=== PATIENT | female | born 1955 | race Caucasian/White ===

== ENCOUNTER 2018-11-06 04:41 | Inpatient (IN) ==
--- NOTE | 2018-10-09 09:25 | PAT Medication Instructions ---
Medication Instructions Date of Service October 09, 2018 Home Medications Medication Instructions Recorded tramadol 50 mg PO .q4-6h PRN #30 tab 04/11/18 Calcium 600 + D(3) 1 tab PO QAM allopurinol 100 mg PO QAM cholecalciferol (vitamin D3) [Vitamin D3] 1,000 unit PO QAM clotrimazole-betamethasone 1 applic TOPICAL BID NEEDED levothyroxine [Synthroid] 150 mcg PO QAM olmesartan-hydrochlorothiazide [Benicar HCT] 1 tab PO QAM solifenacin [Vesicare] 10 mg PO QAM tramadol 50 mg PO .q4-6h NEEDED ASK your surgeon for instructions naproxen sodium [Aleve] 440 mg PO BID NEEDED STOP taking 24 hours before surgery clotrimazole-betamethasone 1 applic TOPICAL BID NEEDED DO NOT take the morning of surgery Calcium 600 + D(3) 1 tab PO QAM cholecalciferol (vitamin D3) [Vitamin D3] 1,000 unit PO QAM olmesartan-hydrochlorothiazide [Benicar HCT] 1 tab PO QAM solifenacin [Vesicare] 10 mg PO QAM Take morning of surgery With a small sip of water, OTHERWISE NOTHING TO EAT OR DRINK AFTER MIDNIGHT: allopurinol 100 mg PO QAM levothyroxine [Synthroid] 150 mcg PO QAM tramadol 50 mg PO .q4-6h NEEDED (if needed; stop 4 hours before surgery) Take evening before surgery tramadol 50 mg PO .q4-6h NEEDED (if needed) Other Notes If you have any questions please call us at [phone] or [phone] or [phone] or [phone]
--- NOTE | 2018-10-09 09:32 | Anesthesiology Consultation ---
Date of Service October 09, 2018 Assessment & Plan (1) Encounter for pre-operative examination: - No previous anesthesia records re: intubations Chart Review Chart Review: Pending: Refer to Additional Notes / Consult section (Acceptable risk for surgery pending medical preoperative evaluation with PCP) and Patient seen in Pre Admission Testing Consults Requested medical (Rosy Hernandez PA-C (10/24)) Teaching & Discussion Pre-Anesthesia Teaching/Discussion Notes: Instructed NPO after midnight before surgery, except medications with 15 cc of water. Medication instructions provided according to the PAT guidelines. History Surgery Operation Date: 11/06/18 07:00 Proposed Procedures p Right Total Hip Arthroplasty - Jonah Swanson Height/Weight Height: 5 ft 7 in Weight: 126.6 kg Allergies Allergy/AdvReac Type Severity Reaction Status Date / Time hyoscyamine [From Levbid] Allergy Intermediate Hives Verified 10/05/18 15:55 Medications Home Medications Medication Instructions Recorded Confirmed Last Taken Calcium 600 + D(3) 1 tab PO QAM 03/27/18 10/05/18 04/08/18 06:00 allopurinol 100 mg PO QAM 03/27/18 10/05/18 04/08/18 06:00 cholecalciferol (vitamin D3) 1,000 unit PO QAM 03/27/18 10/05/18 04/08/18 06:00 [Vitamin D3] clotrimazole-betamethasone 1 applic TOPICAL BID PRN 03/27/18 10/05/18 04/08/18 06:00 levothyroxine [Synthroid] 150 mcg PO QAM 03/27/18 10/05/18 04/10/18 06:00 olmesartan-hydrochlorothiazide 1 tab PO QAM 03/27/18 10/05/18 04/09/18 06:00 [Benicar HCT] solifenacin [Vesicare] 10 mg PO QAM 03/27/18 10/05/18 04/09/18 06:00 tramadol 50 mg PO .q4-6h PRN #30 tab 04/11/18 10/05/18 Unknown Past Medical History Medical History Arterial necrosis LEFT HIP Hypertension Hypothyroidism Morbid obesity Sleep apnea USES CPAP Exercise / Class Metabolic Activity II 4-5 Yardwork/Stairs/Walk up hill (Able to climb FOS. 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 Denies CP or SOB. ) Past Family History Family History Brother Family hx of colon cancer Past Surgical History Surgical History History of bilateral tubal ligation History of carpal tunnel release of both wrists History of colonoscopy History of dilatation and curettage History of lumpectomy of right breast History of total hip arthroplasty left Hx of cholecystectomy Hx of left cataract extraction Hx of total hysterectomy VERONIKA AND BSO Past Anesthesia History No Hx of Anesthesia Complications and No Family Hx of Anesthesia Complications History of PONV No Hx of PONV and No Hx of Motion Sickness Social History Smoking Status: Never smoker Do You Dip or Chew Tobacco: No Hx Alcohol Use: No Hx Substance Use: No substance use type: does not use Review of Systems Patient denies chest pain, shortness of breath, dyspnea on exertion, joint pain, reflux, cough, wheezing, palpitations. +Joint Pain (Hip, right knee) Physical Exam Vital Signs BP: 129/85 P: 67 R: 14 T: 98.2 SPO2: 97% on RA Constitutional + morbidly obese ENMT Mouth: no TMJ abnormality and no TMJ clicking Thyromental Distance: < 3.5 Finger Breadths (3) Mallampati Class: II Mouth / Teeth: 1. Missing 2. Missing Neck normal visual inspection and + thick neck; neck extension not limited Respiratory normal respiratory effort Auscultation: lungs clear to auscultation bilaterally Cardiovascular Rate/Rhythm: regular rate and regular rhythm Heart Sounds: no murmur Vessels: no carotid bruit Neurologic moves all extremities Psychiatric Orientation: alert and oriented x 3 Testing Laboratory Results 10/09/18 09:52 10/09/18 09:52 PT 9.6 Seconds (9.0-12.0) 10/09/18 09:52 INR 0.9 (0.9-1.1) 10/09/18 09:52 APTT 24.5 Seconds (21.0-31.0) 10/09/18 09:52 Urine Color Yellow 10/09/18 09:52 Urine Appearance Clear (Clear) 10/09/18 09:52 Urine pH 7.5 (4.5-7.5) 10/09/18 09:52 Ur Specific [place] 1.014 (1.000-1.030) 10/09/18 09:52 Urine Protein Negative (Negative) 10/09/18 09:52 Urine Glucose (UA) Negative (Negative) 10/09/18 09:52 Urine Ketones Negative (Negative) 10/09/18 09:52 Urine Nitrite Negative (Negative) 10/09/18 09:52 Ur Leukocyte Esterase Negative (Negative) 10/09/18 09:52 Blood Type A Positive 10/09/18 09:52 Antibody Screen NEGATIVE 10/09/18 09:52 10/09/18 09:52 Urine Culture - Final Urine,Clean Catch Gamma strep not enterococcus Electrocardiogram Date: 03/30/18 Findings: + NSR @ (75) Chest X-Ray Date: 03/30/18 Findings: + NAD 1. No acute cardiopulmonary findings. 2. Suspected mild cardiomegaly.
[2018-10-09 10:56] LABS: Basophils # (auto) 0.04 K/uL (0-0.2); Basophils % (auto) 0.6 %; Eosinophils # (auto) 0.13 K/uL (0-0.5); Hematocrit (blood only) 43.2 % (37-47); Hemoglobin 15.1 g/dL (12.0-16.0); Immature Granulocytes # (auto) 0.02 K/uL (0.00-0.02); Immature Granulocytes % (auto) 0.3 %; Lymphocytes # (auto) 2.33 K/uL (1.2-3.4); Lymphocytes % (auto) 35.5 %; Mean Corpuscular Hemoglobin 31.8 pg (25-34); Mean Corpuscular Volume 90.9 fL (80-100); Mean Platelet Volume 9.5 fL (7.4-10.4); Monocytes # (auto) 0.53 K/uL (0.11-0.59); Monocytes % (auto) 8.1 %; Neutrophils # (auto) 3.51 K/uL (1.4-6.5); Neutrophils % (auto) 53.5 %; Platelet Count 261 K/uL (130-400); RDW Coefficient of Variation 14.1 % (11.5-14.5); RDW Standard Deviation 47.5 fL (36.4-46.3); Red Blood Count 4.75 M/uL (4.2-5.4); White Blood Count 6.56 K/uL (4.8-10.8)
[2018-10-09 10:57] LABS: Appearance Urine Clear (Clear); Bilirubin Urine Negative (Negative); Blood Urine Negative (Negative); Color Urine Yellow; Glucose Urine UA Negative (Negative); Ketones Urine Negative (Negative); Leukocyte Esterase Urine Negative (Negative); Nitrite Urine Negative (Negative); Protein Urine Negative (Negative); Specific Gravity Urine 1.014 (1.000-1.030); Urobilinogen Urine Negative (Negative); pH Urine 7.5 (4.5-7.5)
[2018-10-09 11:05] LABS: INR 0.9 (0.9-1.1); Partial Thromboplastin Ratio 0.9; Partial Thromboplastin Time 24.5 Seconds (21.0-31.0); Prothrombin Time 9.6 Seconds (9.0-12.0)
[2018-10-09 13:03] LABS: BUN Creatinine Ratio 16.8 (10-20); Calcium 9.9 mg/dl (8.5-10.1); Creatinine Clr Calc Pharmacy 99.6 ml/min; Est GFR (African American) 89.5; Est GFR (Non-African American) 77.2; Potassium 3.9 mmol/L (3.5-5.1)
[2018-10-09 13:06] LABS: Albumin Globulin Ratio 1.3 (0.9-2); Bilirubin,Total 0.3 mg/dl (0.2-1); Globulin 3.1 gm/dl (2.5-4.0); Total Protein 7.1 gm/dl (6.4-8.2)
--- NOTE | 2018-11-05 13:39 | History & Physical Report ---
Date of Service November 05, 2018 Assessment & Plan (1) Degenerative joint disease of right hip: plan is to admit and undergo right koko History of Present Illness Chief Complaint: right hip pain Primary Care Provider: NO PCP pt with right hip and groin pain for years..canrt do adls, limping constantly. Allergies Allergy/AdvReac Type Severity Reaction Status Date / Time hyoscyamine [From Levbid] Allergy Intermediate Hives Verified 10/05/18 15:55 Home Medications Home Medications Medication Instructions Recorded Confirmed Type Calcium 600 + D(3) 1 tab PO QAM 03/27/18 10/05/18 History allopurinol 100 mg PO QAM 03/27/18 10/05/18 History cholecalciferol (vitamin D3) 1,000 unit PO QAM 03/27/18 10/05/18 History [Vitamin D3] clotrimazole-betamethasone 1 applic TOPICAL BID PRN 03/27/18 10/05/18 History levothyroxine [Synthroid] 150 mcg PO QAM 03/27/18 10/05/18 History olmesartan-hydrochlorothiazide 1 tab PO QAM 03/27/18 10/05/18 History [Benicar HCT] solifenacin [Vesicare] 10 mg PO QAM 03/27/18 10/05/18 History tramadol 50 mg PO .q4-6h PRN #30 tab 04/11/18 10/05/18 Rx Past Med/Surg History Medical History Arterial necrosis LEFT HIP Hypertension Hypothyroidism Morbid obesity Sleep apnea USES CPAP Surgical History History of bilateral tubal ligation History of carpal tunnel release of both wrists History of colonoscopy History of dilatation and curettage History of lumpectomy of right breast History of total hip arthroplasty left Hx of cholecystectomy Hx of left cataract extraction Hx of total hysterectomy VERONIKA AND BSO Family History Brother Family hx of colon cancer Social History Preferred Language: Setswana Communication Ability: Effective Riprap Worker Required: No Beliefs That Will Affect Care: None marital status: Current Living Situation: Spouse Other Information That Helps Us Care for You: No Feels Safe at Home: Yes Safety Concerns: Feels Safe At This Time Smoking Status: Never smoker Do You Dip or Chew Tobacco: No ; Second Hand Exposure: Yes (WORKPLACE IN THE PAST) ; Tobacco Cessation Education Requested by Patient: No Hx Alcohol Use: No Hx Substance Use: No Review of Systems All systems reviewed & are unremarkable except as noted in HPI & below Physical Exam Constitutional: WD/WN, vitals as above Neck: trachea midline, no thyromegaly Respiratory: normal respiratory effort, lungs clear to auscultation Cardiovascular: RRR, no murmur, no edema Gastrointestinal (Abdomen): normal bowel sounds, soft, nontender, no hepato splenomegaly Musculoskeletal: Hip: + limited ROM of hip and + hip ROM with crepitation
[2018-11-06] MEDS ORDERED: ACETAMINOPHEN 500 MG TAB PO SCH (06:00)
[2018-11-06] MEDS ORDERED: CeleBREX 200 MG CAP PO SCH (06:00)
[2018-11-06] MEDS ORDERED: dexAMETHasone 4 MG TAB PO SCH (06:00)
[2018-11-06] MEDS ORDERED: LR 500ML BOLUS, THEN 15ML/HR IV SCH (06:00)
[2018-11-06] MEDS ORDERED: FAMOTIDINE 20 MG TAB PO SCH (06:00)
[2018-11-06] MEDS ORDERED: CEFAZOLIN 3000MG 72.5 ML IV SCH (06:00)
[2018-11-06] MEDS ORDERED: METOCLOPRAMIDE HCL 10 MG TABLET PO SCH (06:00)
[2018-11-06] MEDS ORDERED: TRANEXAMIC ACID 1,000 MG **IV Pre-op IV SCH (06:00)
[2018-11-06] MEDS ORDERED: LR 60ML/HR IV SCH (06:00)
[2018-11-06] MEDS ORDERED: TRANEXAMIC ACID 1,000 MG **IV Intra-op IV SCH (06:30)
[2018-11-06] MEDS ORDERED: BUPIVACAINE 0.5 % 5 MG/1 ML PF 10ML VIAL ONE (06:37)
[2018-11-06] MEDS ORDERED: MIDAZOLAM HCL 1 MG/ML 2ML VIAL ONE ×2 (06:38→06:39)
--- NOTE | 2018-11-06 06:48 | History & Physical Bridge Note ---
Date of Service November 06, 2018 History & Physical Bridge Note I have examined the patient, reviewed the History & Physical and in the interval since the performance of the History & Physical I have noted the following changes of clinical significance: no changes noted
[2018-11-06] MEDS ORDERED: fentaNYL citrate 100 MCG/2 ML VIAL IV PRN (06:54)
[2018-11-06] MEDS ORDERED: ePHEDrine sulfate 50 MG/ML AMP IV PRN (06:54)
[2018-11-06] MEDS ORDERED: ONDANSETRON INJ 2 MG/ML 2 ML VIAL IV PRN ×2 (06:54→09:55)
[2018-11-06] MEDS ORDERED: BACITRACIN INJ 50,000 UNIT VIAL ONE (06:55)
[2018-11-06] MEDS ORDERED: ORTHO JOINT ANESTHETIC ONE (06:55)
[2018-11-06] MEDS ORDERED: fentaNYL citrate 100 MCG/2 ML VIAL ONE ×2 (07:24→08:30)
[2018-11-06] MEDS ORDERED: LIDOCAINE HCL 2% 2 ML VIAL/AMP(20MG/ML) INFIL ONE (07:24)
[2018-11-06] MEDS ORDERED: ONDANSETRON INJ 2 MG/ML 2 ML VIAL ONE (07:24)
[2018-11-06] MEDS ORDERED: PROPOFOL IV EMULSION 10 MG/ML 20 ML VIAL IV ONE ×2 (07:24→08:00)
[2018-11-06] MEDS: ROPIVACAINE 0.5% HCL/PF 150 MG, BUPIVACAINE 0.5% MPF 30 ML, EPINEPHrine 30MG/30ML (OR U... INFIL SCH ×2 (08:00→08:33)
[2018-11-06] MEDS ORDERED: PHENYLEPHRINE 100MCG/ML 5ML SYR ONE (08:04)
--- NOTE | 2018-11-06 08:20 | Post Operative Brief Note ---
Immediate Post Op Note v1 Date of Surgery November 06, 2018 Pre & Post Diagnosis Operation Date: 11/06/18 07:00 Pre-Op Diagnosis: Right Hip Degenerative Joint Disease Post-Op Diagnosis: Right Hip Degenerative Joint Disease Procedure Operation Date: 11/06/18 07:00 Actual Procedures p Right Total Hip Arthroplasty--Uncemented(Right) - Jonah Swanson Surgeon Jonah Swanson Field Research Assistant art olmstead Estimated Blood Loss 45 Findings Consistent with Post-Op Diagnosis Drains Hemovac Drain Complications none Disposition Accompanied Patient To Recovery: No
--- NOTE | 2018-11-06 08:23 | Operative Report ---
Post Operative Report Pre & Post Diagnosis Operation Date: 11/06/18 07:00 Pre-Op Diagnosis: Right Hip Degenerative Joint Disease and morbid obesity Post-Op Diagnosis: Right Hip Degenerative Joint Disease and morbid obesity Procedure Operation Date: 11/06/18 07:00 Actual Procedures p Right Total Hip Arthroplasty--Uncemented(Right) - Jonah Swanson Surgeon Jonah Swanson Slubber Hand yoandy olmstead Estimated Blood Loss 45 Findings Consistent with Post-Op Diagnosis Specimens none Complications none Disposition Accompanied Patient To Recovery: No Disposition: Recovery Room Description of Procedure IMPLANTS USED: Implants used were a [place] size 56 mm Trident 2 Tritanium acetabular cup, 1 acetabular screw, a #4 Accolade 2 stem with a 127 neck, and a 36 mm +2.5 mm ceramic head INDICATIONS: Mrs. David Bruner is a pleasant female who has unfortunately failed all forms of conservative measures. Therefore, they have has decided to undergo elective surgical intervention. All risks and benefits of the surgery were discussed with the patient and the family in entirety. PROCEDURE: The patient was brought to the operating room and properly identified by myself, anesthesia, and staff. Patient was given a spine anesthetic and placed on the operating table with the right hip up. The hip was then prepped and draped in the standard orthopedic fashion. We made a standard posterolateral approach over the greater trochanteric area. We then dissected down to subcutaneous tissue until the fascia was identified. We incised the fascia in line with the skin incision. We then split the gluteus bibiana muscles with finger dissection. We then put the [place]arn[place] retractor in place. We placed the retractor underneath the gluteus medius to expose the piriformis. The piriformis was then tagged with a tag suture and released from the insertion from the greater trochanteric area with the use of electrocautery. We then performed a T capsulotomy and the femoral head and neck were atraumatically dislocated. We then performed femoral neck osteotomy at the pre-template site. We removed the femoral head and neck without difficulty. We then placed the retractor around the acetabulum. We then began to ream the acetabulum to the appropriate size. We then impacted the cup into place and had a very good fixation within the pelvis. We then put the liner in place as well. Then using multiple size approaches from the Accolade 2 system a size ##4 fit very nicely in the proximal femur. I then put trial components in place. WE had very good range of motion, excellent stability, and excellent leg length equality. We removed the trial components and irrigated the wound. We then impacted the components in place and irrigated the wound once more. We then closed the capsule and fascia with a 0 Vicryl suture, the deep dermis with 2-0 Vicryl suture, and finally the skin with a running 3-0 Vicryl subcuticular stitch. A sterile dressing was applied. The patient was taken to the recovery room in stable condition. Due to the complex nature of the procedure, the entire surgery was performed with the operational assistance of Yoandy Noonan PA-C. The video library assistant was under direct supervision, was involved in the actual performance of all aspects of the surgical procedure including hemostasis, tissue retraction and incision, instrument management, patient positioning, and wound closure. Because the patient's BMI over 40 she was morbidly obese and because this required the assistance of an extra person took us about an extra 45% longer to do the procedure.. I attest to the content of the Intraoperative Record and any orders documented therein. Any exceptions are noted below.
[2018-11-06] MEDS ORDERED: NALOXONE HCL 0.4 MG/1 ML VIAL/CARP IV PRN (09:55)
[2018-11-06] MEDS ORDERED: MAGNESIUM HYDROXIDE SUSP 30 ML UDC PO PRN (09:55)
[2018-11-06] MEDS ORDERED: METOCLOPRAMIDE HCL INJ 5 MG/ML 2 ML VIAL IV PRN (09:55)
[2018-11-06] MEDS ORDERED: BISACODYL 10 MG SUPP PR PRN (09:55)
[2018-11-06] MEDS ORDERED: ALUMINUM/MAGNESIUM SUSP 30 ML UDC PO PRN (09:55)
[2018-11-06] MEDS: SODIUM CHLORIDE 0.9% 1000ML 1,000 ML IV SCH ×2 (10:48→20:11)
[2018-11-06] MEDS ORDERED: OLMESARTAN MEDOXOMIL 40 MG TAB PO SCH (11:00)
[2018-11-06] MEDS: DOCUSATE SODIUM 100 MG CAP PO SCH ×2 (11:39→20:26)
[2018-11-06] MEDS: hydroCHLOROthiazide 25 MG TAB PO SCH (11:40)
[2018-11-06] MEDS: CIPROFLOXACIN 500 MG TAB PO SCH ×2 (11:40→20:26)
[2018-11-06] MEDS: ASPIRIN 81 MG ECTAB PO SCH ×2 (11:40→20:26)
[2018-11-06] MEDS: OLMESARTAN MEDOXOMIL 40 MG TAB PO SCH (11:49)
--- NOTE | 2018-11-06 13:32 | Anesthesiology Progress Note ---
Date of Service November 06, 2018 Anesthesia Post Procedure Vital Signs Vital Signs: Temp Pulse Pulse Pulse Resp BP Pulse Ox 11/06/18 13:19 77 18 145/76 H 98 11/06/18 12:02 66 18 120/71 99 11/06/18 10:59 75 18 120/75 98 11/06/18 10:24 73 18 112/71 97 11/06/18 10:00 36.5 C 62 17 105/67 98 11/06/18 09:45 66 19 102/57 L 95 11/06/18 09:35 36.8 C 60 14 116/53 L 94 11/06/18 09:25 61 17 106/57 L 99 11/06/18 09:15 56 L 12 107/58 L 99 11/06/18 09:05 59 L 17 105/64 99 11/06/18 08:55 57 L 12 96/56 L 94 11/06/18 08:47 36.4 C L 58 L 13 98/56 L 98 11/06/18 05:16 36.7 C 70 16 143/74 H 97 Pain Intensity Right Hip: Pain Intensity: 0 Transfer of Care Handoff Completed per policy Notes Mental Status: alert / awake / arousable Patient Amnestic to Procedure: Yes Nausea / Vomiting: adequately controlled Pain: adequately controlled Airway Patency, RR, SpO2: stable & adequate BP & HR: stable & adequate Hydration State: stable & adequate Neuraxial Anesthesia: was administered and sensory block is resolving Anesthetic Complications: no major complications apparent and Pt Satisfied with anesthetic care
[2018-11-06] MEDS: TRAMADOL HCL 50 MG TABLET PO PRN ×2 (13:46→23:22)
[2018-11-06] MEDS: ACETAMINOPHEN 500 MG TAB PO SCH ×2 (13:47→21:47)
[2018-11-06] MEDS ORDERED: TRANEXAMIC ACID 1,000 MG in 0.9 % SODIUM CHLORIDE 100 ML IV SCH (14:15)
[2018-11-06] MEDS: CEFAZOLIN 2000MG 2,000 MG/15 ML SYR IV SCH ×2 (15:10→21:55)
[2018-11-06] MEDS: OXYCODONE HCL IR 5 MG TAB (IMMEDIATE RELEASE) PO PRN ×2 (15:20→20:08)
[2018-11-06] MEDS ORDERED: SENNA 8.6 MG TAB PO SCH (21:00)
[2018-11-07] MEDS: OXYCODONE HCL IR 5 MG TAB (IMMEDIATE RELEASE) PO PRN ×2 (02:05→06:31)
[2018-11-07] MEDS: ACETAMINOPHEN 500 MG TAB PO SCH ×2 (05:56→13:53)
[2018-11-07] MEDS ORDERED: LEVOTHYROXINE SODIUM 150 MCG TABLET PO SCH (06:30)
[2018-11-07 06:41] LABS: Basophils # (auto) 0.01 K/uL (0-0.2); Basophils % (auto) 0.1 %; Eosinophils # (auto) 0.02 K/uL (0-0.5); Eosinophils % (auto) 0.2 %; Hematocrit (blood only) 35.7 % (37-47); Hemoglobin 12.3 g/dL (12.0-16.0); Immature Granulocytes # (auto) 0.06 K/uL (0.00-0.02); Immature Granulocytes % (auto) 0.5 %; Lymphocytes # (auto) 1.37 K/uL (1.2-3.4); Mean Corpuscular Hemoglobin 31.5 pg (25-34); Mean Corpuscular Hgb Conc 34.5 g/dL (32-36); Mean Corpuscular Volume 91.3 fL (80-100); Mean Platelet Volume 9.3 fL (7.4-10.4); Monocytes # (auto) 0.82 K/uL (0.11-0.59); Monocytes % (auto) 6.6 %; Neutrophils # (auto) 10.16 K/uL (1.4-6.5); Neutrophils % (auto) 81.6 %; Platelet Count 232 K/uL (130-400); RDW Coefficient of Variation 13.8 % (11.5-14.5); RDW Standard Deviation 45.7 fL (36.4-46.3); Red Blood Count 3.91 M/uL (4.2-5.4); White Blood Count 12.44 K/uL (4.8-10.8)
[2018-11-07 07:09] LABS: BUN Creatinine Ratio 18.8 (10-20); Calcium 8.6 mg/dl (8.5-10.1); Creatinine Clr Calc Pharmacy 100.9 ml/min; Est GFR (African American) 90.9; Est GFR (Non-African American) 78.4; Potassium 3.5 mmol/L (3.5-5.1)
[2018-11-07] MEDS ORDERED: dexAMETHasone 10 MG in SYRINGE 0 ML IV SCH (08:00)
--- NOTE | 2018-11-07 08:25 | Orthopedic Progress Note ---
Date of Service November 07, 2018 Assessment & Plan (1) Degenerative joint disease of right hip: Postop day 1 status post right total hip arthroplasty. PT/OT protocols. Weightbearing as tolerated. DVT prophylaxis-aspirin twice daily, SCDs Pain management as written. DC planning-plan for DC to home with home health services. Subjective Postop day 1 status post right total hip arthroplasty. Patient is currently sitting up in bed. She has no complaints. Pain is controlled. She denies any shortness of breath, chest pain, lightheadedness. Physical Exam Physical Exam: Melva dressing is dry and intact. Functioning properly. Calves are soft nontender. Neurovascular is intact. Toes are mobile. Hip appears located. Hemovac drainage was 75 cc from previous shift. Results & Data Vital Signs (Past 12 Hours) Vital Signs Temp Pulse Pulse Resp BP Pulse Ox 11/07/18 07:58 36.5 C 62 18 108/70 96 11/07/18 04:33 36.5 C 66 18 115/66 95 11/06/18 23:20 36.7 C 73 17 128/78 96 Laboratory Results Laboratory Results WBC 12.44 K/uL (4.8-10.8) H 11/07/18 06:27 RBC 3.91 M/uL (4.2-5.4) L 11/07/18 06:27 Hgb 12.3 g/dL (12.0-16.0) 11/07/18 06:27 Hct 35.7 % (37-47) L 11/07/18 06:27 MCV 91.3 fL (80-100) 11/07/18 06:27 MCH 31.5 pg (25-34) 11/07/18 06:27 MCHC 34.5 g/dL (32-36) 11/07/18 06:27 RDW Std Deviation 45.7 fL (36.4-46.3) 11/07/18 06:27 RDW Coeff of Goldy 13.8 % (11.5-14.5) 11/07/18 06:27 Plt Count 232 K/uL (130-400) 11/07/18 06:27 MPV 9.3 fL (7.4-10.4) 11/07/18 06:27 Immature Gran % (Auto) 0.5 % 11/07/18 06:27 Neut % (Auto) 81.6 % 11/07/18 06:27 Lymph % (Auto) 11.0 % 11/07/18 06:27 [place] % (Auto) 6.6 % 11/07/18 06:27 Eos % (Auto) 0.2 % 11/07/18 06:27 Baso % (Auto) 0.1 % 11/07/18 06:27 Immature Gran # (Auto) 0.06 K/uL (0.00-0.02) H 11/07/18 06:27 Neut # (Auto) 10.16 K/uL (1.4-6.5) H 11/07/18 06:27 Lymph # (Auto) 1.37 K/uL (1.2-3.4) 11/07/18 06:27 [place] # (Auto) 0.82 K/uL (0.11-0.59) H 11/07/18 06:27 Eos # (Auto) 0.02 K/uL (0-0.5) 11/07/18 06:27 Baso # (Auto) 0.01 K/uL (0-0.2) 11/07/18 06:27 PT 9.6 Seconds (9.0-12.0) 10/09/18 09:52 INR 0.9 (0.9-1.1) 10/09/18 09:52 APTT 24.5 Seconds (21.0-31.0) 10/09/18 09:52 PTT Ratio 0.9 10/09/18 09:52 Sodium 133 mmol/L (136-145) L 11/07/18 06:27 Potassium 3.5 mmol/L (3.5-5.1) 11/07/18 06:27 Chloride 98 mmol/L (98-107) 11/07/18 06:27 Carbon Dioxide 26 mmol/L (21-32) 11/07/18 06:27 Anion Gap 9.0 (3-11) 11/07/18 06:27 BUN 15 mg/dl (7-18) 11/07/18 06:27 Creatinine 0.81 mg/dl (0.6-1.2) 11/07/18 06:27 Est Cr Clr Drug Dosing 100.9 ml/min 11/07/18 06:27 Est GFR ( Amer) 90.9 11/07/18 06:27 Est GFR (Non-Af Amer) 78.4 11/07/18 06:27 BUN/Creatinine Ratio 18.8 (10-20) 11/07/18 06:27 Glucose 117 mg/dl (70-99) H 11/07/18 06:27 Calcium 8.6 mg/dl (8.5-10.1) 11/07/18 06:27 Total Bilirubin 0.3 mg/dl (0.2-1) 10/09/18 09:52 AST 25 U/L (15-37) 10/09/18 09:52 ALT 57 U/L (12-78) 10/09/18 09:52 Alkaline Phosphatase 43 U/L (45-117) L 10/09/18 09:52 Total Protein 7.1 gm/dl (6.4-8.2) 10/09/18 09:52 Albumin 4.0 gm/dl (3.4-5.0) 10/09/18 09:52 Globulin 3.1 gm/dl (2.5-4.0) 10/09/18 09:52 Albumin/Globulin Ratio 1.3 (0.9-2) 10/09/18 09:52 Urine Color Yellow 10/09/18 09:52 Urine Appearance Clear (Clear) 10/09/18 09:52 Urine pH 7.5 (4.5-7.5) 10/09/18 09:52 Ur Specific [place] 1.014 (1.000-1.030) 10/09/18 09:52 Urine Protein Negative (Negative) 10/09/18 09:52 Urine Glucose (UA) Negative (Negative) 10/09/18 09:52 Urine Ketones Negative (Negative) 10/09/18 09:52 Urine Blood Negative (Negative) 10/09/18 09:52 Urine Nitrite Negative (Negative) 10/09/18 09:52 Urine Bilirubin Negative (Negative) 10/09/18 09:52 Urine Urobilinogen Negative (Negative) 10/09/18 09:52 Ur Leukocyte Esterase Negative (Negative) 10/09/18 09:52 Nasal Screen MRSA (PCR) Negative (Negative) 10/09/18 09:52 Blood Type A Positive 10/09/18 09:52 Antibody Screen NEGATIVE 10/09/18 09:52
--- NOTE | 2018-11-07 08:51 | Anesthesiology Progress Note ---
Date of Service November 07, 2018 Anesthesia Post Procedure Vital Signs Vital Signs: Temp Pulse Pulse Pulse Resp BP Pulse Ox 11/07/18 07:58 36.5 C 62 18 108/70 96 11/07/18 04:33 36.5 C 66 18 115/66 95 11/06/18 23:20 36.7 C 73 17 128/78 96 11/06/18 15:01 36.7 C 74 16 120/68 94 11/06/18 13:19 77 18 145/76 H 98 11/06/18 12:02 66 18 120/71 99 11/06/18 10:59 75 18 120/75 98 11/06/18 10:24 73 18 112/71 97 11/06/18 10:00 36.5 C 62 17 105/67 98 11/06/18 09:45 66 19 102/57 L 95 11/06/18 09:35 36.8 C 60 14 116/53 L 94 11/06/18 09:25 61 17 106/57 L 99 11/06/18 09:15 56 L 12 107/58 L 99 11/06/18 09:05 59 L 17 105/64 99 11/06/18 08:55 57 L 12 96/56 L 94 Pain Intensity Right Hip: Pain Intensity: 0 Notes Mental Status: alert / awake / arousable Patient Amnestic to Procedure: Yes Nausea / Vomiting: adequately controlled Pain: adequately controlled Airway Patency, RR, SpO2: stable & adequate BP & HR: stable & adequate Hydration State: stable & adequate Neuraxial Anesthesia: was administered and sensory block resolved Anesthetic Complications: no major complications apparent
[2018-11-07] MEDS: CIPROFLOXACIN 500 MG TAB PO SCH (08:57)
[2018-11-07] MEDS: ASPIRIN 81 MG ECTAB PO SCH (08:58)
[2018-11-07] MEDS: DOCUSATE SODIUM 100 MG CAP PO SCH (08:58)
[2018-11-07] MEDS: hydroCHLOROthiazide 25 MG TAB PO SCH (08:58)
[2018-11-07] MEDS: OLMESARTAN MEDOXOMIL 40 MG TAB PO SCH (08:58)
[2018-11-07] MEDS: TRAMADOL HCL 50 MG TABLET PO PRN (13:53)
--- NOTE | 2018-11-10 09:31 | Discharge Summary ---
Date of Service November 10, 2018 Admission HPI Per Admitting Provider pt with right hip and groin pain for years..canrt do adls, limping constantly. Admission Exam Per Admitting Provider Physical Exam Constitutional: WD/WN, vitals as above Neck: trachea midline, no thyromegaly Respiratory: normal respiratory effort, lungs clear to auscultation Cardiovascular: RRR, no murmur, no edema Gastrointestinal (Abdomen): normal bowel sounds, soft, nontender, no hepatosplenomegaly Musculoskeletal: Hip: + limited ROM of hip and + hip ROM with crepitation Principal Diagnosis Right Hip Osteoarthritis Discharge Exam Marycruz dressing is dry and intact. Functioning properly. Calves are soft nontender. Neurovascular is intact. Toes are mobile. Hip appears located. Hemovac drainage was 75 cc from previous shift. Discharge Data Allergies Allergy/AdvReac Type Severity Reaction Status Date / Time hyoscyamine [From Levbid] Allergy Intermediate Hives Verified 11/06/18 05:20 Consultations 11/07/18 08:00 Consult Case Management - Discharge Planning Routine Procedures Performed Operation Date: 11/06/18 07:00 Actual Procedures p Right Total Hip Arthroplasty--Uncemented(Right) - [facility] Course (1) Degenerative joint disease of right hip: Postop day 1 status post right total hip arthroplasty. PT/OT protocols. Weightbearing as tolerated. DVT prophylaxis-aspirin twice daily, SCDs Pain management as written. DC planning-plan for DC to home with home health services. Patient progressing well with PT. No new complaints. Pain controlled. Feels she is ready to go home. HV to be removed by services. Plan for dc today. Total Time Total Time Spent Total Time Spent (In Minutes): 1 Discharge Plan Discharge Items Patient Disposition: Home - Home Health Services Reason For Visit: Right Hip Avascular Necrosis Discharge Diagnosis: Right hip avascular necrosis Weightbearing: Right weightbearing Weightbearing Comment: As tolerated with walker Non-emergency contact: Surgeon Call non-emergency contact if: your pain is not controlled, your temperature is above 101.5, your wound has increased redness and your wound has increased drainage Follow-up/Referrals: PCP,NO [Primary Care Provider] - Diet: Regular Addtl Attending Provider Instructions: Please follow Dr. Clemens's total hip arthroplasty instructions. Please call the office with any questions. [phone] Follow-up with Dr. Clemens in 2 weeks. Please call for appointment if one has not been made for you. MARYCRUZ dressing- This is a large suction dressing covering your incision. This will help pull any excess drainage from the wound and allow your incision to heal properly. You may shower with this if you can keep the unit outside of the shower. If any bleeding or leakage is noted please call your doctor's office. This will remain on your incision for 7 days and then should be removed. This can be done yourself or by the home nursing staff if applicable. The entire unit is disposable once removed. Once removed, keep incision clean and dry. If redness or drainage is noted, please call your surgeon. Stand-Alone Forms: My [email or web address], Opioid Pain Management Medications and DC Order Prescriptions: New acetaminophen [Tylenol Extra Strength] 500 mg Tablet 1,000 mg PO Q8 14 Days Qty: 84 RF: 0 aspirin [Ecotrin Low Strength] 81 mg Tablet,Delayed Release (Dr/Ec) 81 mg PO BID 30 Days Qty: 60 RF: 0 sennosides [Senokot] 8.6 mg Tablet 17.2 mg PO HS Qty: 30 RF: 0 cefadroxil 500 mg capsule 500 mg PO BID Qty: 60 RF: 0 Continued allopurinol 100 mg Tablet 100 mg PO QAM RF: 0 clotrimazole-betamethasone 1-0.05 % Cream 1 applic TOPICAL BID PRN (Reason: SKIN ISSUES) RF: 0 levothyroxine [Synthroid] 150 mcg Tablet 150 mcg PO QAM RF: 0 olmesartan-hydrochlorothiazide [Benicar HCT] 40-25 mg Tablet 1 tab PO QAM RF: 0 solifenacin [Vesicare] 10 mg Tablet 10 mg PO QAM RF: 0 Calcium 600 + D(3) 600 mg calcium- 200 unit Capsule 1 tab PO QAM RF: 0 cholecalciferol (vitamin D3) [Vitamin D3] 1,000 unit Tablet 1,000 unit PO QAM RF: 0 Discontinued tramadol 50 mg Tablet 50 mg PO .q4-6h PRN (Reason: pain) Qty: 30 RF: 0 naproxen sodium [Aleve] 220 mg Tablet 220 mg PO Q12H PRN (Reason: Pain) RF: 0 ciprofloxacin HCl [Cipro] 500 mg Tablet 500 mg PO BID RF: 0 Discharge Orders: Discharge Order (Routine); Ordered 11/07/18 Ordered By: Yoandy Field/Other Patient Handouts: Surgery Prevent DVT After Admission Data Admit Date/Time: 11/06/18 08:57 Attending Provider: Jonah Swanson Admit Provider: Jonah Swanson Primary Care Provider: PCP,NO Other Interventions: Discharge Summary Assessment (RN) Last Done: 11/07/18 12:32 DC Date/Time DO NOT enter until pt leaves facility: 11/07/18 14:31
== END 2018-11-07 14:31 | disposition home health service (06) | DRG 470 ==
LOC: ASU 04:41 → 3E 08:57